=== PATIENT | male | born 1955 | race Caucasian/White ===

== ENCOUNTER 2018-12-03 23:13 | Emergency (ER) | payer SELFPAY ==
[2018-12-03 23:45] VITALS: BP 127/69
[2018-12-04] MEDS ORDERED: APLISOL ID ONE (00:01)
[2018-12-04 00:11] LABS: Basophils # (Auto) 0.1 K/mm3 (0.0-0.1); Basophils % (Auto) 0.8 % (0.0-1.8); Eosinophils # (Auto) 0.1 K/mm3 (0.0-0.4); Eosinophils % (Auto) 0.6 % (0.0-4.3); Hematocrit 38.8 % (35.5-45.6); Hemoglobin 13.3 gm/dl (11.8-15.2); Lymphocytes # (Auto) 1.3 K/mm3 (1.2-5.4); Lymphocytes % (Auto) 14.6 % (13.4-35.0); Mean Corpuscular HGB Conc 34 % (32-34); Mean Corpuscular Volume 89 fl (84-94); Monocytes # (Auto) 0.9 K/mm3 (0.0-0.8); Monocytes % (Auto) 10.1 % (0.0-7.3); Platelet Count 236 K/mm3 (140-440); Red Blood Count 4.37 M/mm3 (3.65-5.03); Red Cell Distribution Width 14.1 % (13.2-15.2)
[2018-12-04 00:37] LABS: BUN/Creatinine Ratio 19; Blood Urea Nitrogen 17 mg/dL (9-20); Calcium 8.6 mg/dL (8.4-10.2); Hemolysis Index 21
[2018-12-04 00:37] LABS: INR 0.86 (0.87-1.13); Partial Thromboplastin Time 31.8 Sec. (24.2-36.6)
--- NOTE | 2018-12-04 00:41 | Emergency Department Report ---
ED General Adult HPI - General Chief complaint: Upper Respiratory Infection Stated complaint: COUGHING UP BLOOD Time Seen by Provider: 12/03/18 23:40 Source: patient, family, EMS (ems notes not available at time of chart dictation), RN notes reviewed Mode of arrival: Stretcher Limitations: Language Barrier (supervisor cloth winding #[id number]; Slovak) - History of Present Illness Initial comments: This is a 63-year-old gentleman who is not known to this provider previously, reports chronic tobacco use, reports living in the [place] for over 20 years, and reports a "childhood sickness in my lungs when I was very young". The patient presents to the ER with EMS for resolved coughing up blood versus nasal bleeding. It started yesterday. It is painless. It resolved on its own yesterday. He also had an episode today. It is now resolved. He reports putting ice in his mouth yesterday and today, and thus had chills. Otherwise, not having a fever. Has minimal cough, no shortness of breath, no pain. Symptoms intermittent since yesterday, did not radiate anywhere, and did not appear to have exacerbating or relieving factors. Family present at the bedside, and they do not endorse any sick contacts at this point in time. -: Gradual Consistency: intermittent Improves with: none Worsens with: none Associated Symptoms: other (coughing up blood) - Related Data Previous Rx's Medication Instructions Recorded Last Taken Type Sulfamethoxazole/Trimethoprim 1 each PO BID #20 tablet 03/26/15 Unknown Rx [Bactrim Ds] Albuterol Sulfate [Proair 90 mcg IH Q4HR PRN #2 aer.pow.ba 12/04/18 Unknown Rx Respiclick] Fluticasone [Flonase] 1 spray NS QDAY #1 bottle 12/04/18 Unknown Rx Ibuprofen [Motrin] 600 mg PO Q8H PRN #30 tablet 12/04/18 Unknown Rx Allergies Allergy/AdvReac Type Severity Reaction Status Date / Time No Known Allergies Allergy Verified 03/26/15 13:59 ED Review of Systems ROS: Stated complaint: COUGHING UP BLOOD Other details as noted in HPI Constitutional: chills ENT: epistaxis (now resolved). denies: throat pain, dental pain, hearing loss Respiratory: cough Cardiovascular: denies: chest pain Gastrointestinal: denies: abdominal pain Musculoskeletal: denies: back pain Neurological: denies: headache ED Past Medical Hx - Social History Smoking Status: Unknown if ever smoked Substance Use Type: None - Medications Home Medications: Home Medications Medication Instructions Recorded Confirmed Last Taken Type Sulfamethoxazole/Trimethoprim 1 each PO BID #20 tablet 03/26/15 Unknown Rx [Bactrim Ds] Albuterol Sulfate [Proair 90 mcg IH Q4HR PRN #2 aer.pow.ba 12/04/18 Unknown Rx Respiclick] Fluticasone [Flonase] 1 spray NS QDAY #1 bottle 12/04/18 Unknown Rx Ibuprofen [Motrin] 600 mg PO Q8H PRN #30 tablet 12/04/18 Unknown Rx ED Physical Exam - General Limitations: Language Barrier General appearance: alert, in no apparent distress - Head Head exam: Present: atraumatic, normocephalic - Eye Eye exam: Present: normal appearance, EOMI. Absent: nystagmus - ENT ENT exam: Present: normal exam, normal orophraynx, mucous membranes moist, normal external ear exam, other (patient has poor dentition. Dried blood noted in the bilateral nostrils. No obvious nasal septal hematoma) - Neck Neck exam: Present: normal inspection, full ROM. Absent: tenderness, meningismus - Respiratory Respiratory exam: Present: decreased breath sounds. Absent: respiratory distress - Cardiovascular Cardiovascular Exam: Present: regular rate, normal rhythm, normal heart sounds. Absent: bradycardia, tachycardia, irregular rhythm, systolic murmur, diastolic murmur, rubs, gallop - GI/Abdominal GI/Abdominal exam: Present: soft. Absent: distended, tenderness, guarding, rebound, rigid, pulsatile mass - Rectal Rectal exam: Present: deferred - Extremities Exam Extremities exam: Present: normal inspection, full ROM, other (Extraocular movements intact. Tongue midline. No facial droop. Facial sensation intact to light touch in the V1, V2, V3 distribution bilaterally. 5 and 5 strength in 4 extremities.. Sensation is intact to light touch in 4 extremities.). Absent: pedal edema, joint swelling, calf tenderness - Back Exam Back exam: Present: normal inspection, full ROM. Absent: tenderness, CVA tenderness (R), paraspinal tenderness, vertebral tenderness - Neurological Exam Neurological exam: Present: alert, other (2+ pulses noted in the bilateral upper, lower extremities. Compartments soft. No long bony tenderness. The pelvis is stable.) - Psychiatric Psychiatric exam: Present: normal affect, normal mood - Skin Skin exam: Present: warm, dry, intact, normal color. Absent: rash ED Course Vital Signs 12/03/18 23:28 Temperature 98.7 F Pulse Rate 70 Respiratory 18 Rate Blood Pressure 127/69 O2 Sat by Pulse 98 Oximetry - Reevaluation(s) Reevaluation #1: 12/04/18 00:39 Differential diagnosis, including not limited to: Sinusitis, bronchitis, bronchiectasis, pneumonia, malignancy Assessment and plan: 63-year-old gentleman with resolved coughing up blood versus throat blood versus nasal bleeding. Patient afebrile, with reassuring vital signs, appears to be quite comfortable, has no focal pulmonary findings, no fever, currently no history of features or presentation to suggest acute influenza or influenza-like illness, who is yawning at the end of his history and physical. 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 ED Medical Decision Making - Lab Data Result diagrams: 12/03/18 23:58 Vital Signs 12/03/18 23:28 Temperature 98.7 F Pulse Rate 70 Respiratory 18 Rate Blood Pressure 127/69 O2 Sat by Pulse 98 Oximetry Lab Results 12/03/18 12/03/18 12/04/18 Range/Units 23:58 23:58 00:08 WBC 8.6 (4.5-11.0) K/mm3 RBC 4.37 (3.65-5.03) M/mm3 Hgb 13.3 (11.8-15.2) gm/dl Hct 38.8 (35.5-45.6) % MCV 89 (84-94) fl MCH 30 (28-32) pg MCHC 34 (32-34) % RDW 14.1 (13.2-15.2) % Plt Count 236 (140-440) K/mm3 Lymph % (Auto) 14.6 (13.4-35.0) % [place] % (Auto) 10.1 H (0.0-7.3) % Eos % (Auto) 0.6 (0.0-4.3) % Baso % (Auto) 0.8 (0.0-1.8) % Lymph # 1.3 (1.2-5.4) K/mm3 [place] # 0.9 H (0.0-0.8) K/mm3 Eos # 0.1 (0.0-0.4) K/mm3 Baso # 0.1 (0.0-0.1) K/mm3 Seg Neutrophils % 73.9 H (40.0-70.0) % Seg Neutrophils # 6.4 (1.8-7.7) K/mm3 PT 12.1 L (12.2-14.9) Sec. INR 0.86 L (0.87-1.13) APTT 31.8 (24.2-36.6) Sec. Sodium 139 (137-145) mmol/L Potassium 4.0 (3.6-5.0) mmol/L Chloride 101.8 (98-107) mmol/L Carbon Dioxide 26 (22-30) mmol/L Anion Gap 15 mmol/L BUN 17 (9-20) mg/dL Creatinine 0.9 (0.8-1.5) mg/dL Estimated GFR > 60 ml/min BUN/Creatinine Ratio 19 % Glucose 93 (75-100) mg/dL Calcium 8.6 (8.4-10.2) mg/dL - Radiology Data Radiology results: image reviewed interpreted by me: X-ray the chest, negative for acute disease, hyperinflated lung Critical care attestation.: If time is entered above; I have spent that time in minutes in the direct care of this critically ill patient, excluding procedure time. ED Disposition Clinical Impression: History of hemoptysis Disposition: TO HOME OR SELFCARE Is pt being admited?: No Does the pt Need Aspirin: No Condition: Good Instructions: Acute Hemoptysis (ED), Acute Bronchitis (ED) Additional Instructions: Discontinued tobacco consumption. Take the medications as needed/directed. Follow up with the primary care doctor within the next 4 weeks. Follow up with the pulmonary specialists or ENT specialist within the next 4 weeks. Return to the ER right away with lethargy, irritability, nausea, vomiting, change in mental status, confusion, inability to speak, inability to breathe, new, worsening or different symptoms. Dr Draper is a local lung doctor Dr Kwong is an ENT doctor Ng?ng aviva th? arnaldo?c l. Dng arnaldo?c khi c?n thi?t / ken ch? d?n. Ken di v?i bc s? ch?m sc chnh shaka vng 4 tu?n t?i. Ken di v?i cc chuyn olga ph?i ho?c chuyn olga lizeth m?i h?ng shaka vng 4 tu?n t?i. [place]? l?i ER ngay l?p t?c v?i s? th? ?, kh ch?u, bu?n nn, nn, thay ??i tr?ng thi [place] th?n, nh?m l?n, khng th? ni, khng th? th?, m?i, x?u ?i ho?c cc tri?u ch?ng kh nhau. Referrals: ENRIQUE DRAPER MD [Staff Physician] - 7-10 days QUITA KWONG MD [Staff Physician] - 7-10 days [facility] [Provider Group] - 7-10 days
--- NOTE | 2018-12-04 01:23 | XRay Report ---
FINAL REPORT EXAM: XR CHEST 1V AP HISTORY: Shortness of breath TECHNIQUE: AP portable view of the chest. PRIORS: None. FINDINGS: The cardiomediastinal silhouette appears normal. The lungs are clear. The bones and soft tissues are unremarkable. IMPRESSION: No evidence of acute cardiopulmonary disease.
== END 2018-12-04 01:54 | disposition home or self-care (01) ==
LOC: ED 23:13
DX: R04.2 Hemoptysis (principal)
CPT/HCPCS: 36415; 71045; 80048; 85025; 85610; 85730; 99284

== ENCOUNTER 2018-12-04 02:11 | Emergency (ER) | payer SELFPAY ==
[2018-12-04 02:36] VITALS: BP 113/74
[2018-12-04] MEDS ORDERED: VICKS SINEX NS ONE (03:04)
--- NOTE | 2018-12-04 03:55 | Emergency Department Report ---
ED ENT HPI - General Chief complaint: Nosebleed Stated complaint: NOSE BLEED Time Seen by Provider: 12/04/18 03:04 Source: patient, family, RN notes reviewed, old records reviewed Mode of arrival: Ambulatory Limitations: No Limitations, Language Barrier - History of Present Illness Initial comments: This is a 63-year-old gentleman who I just evaluated. Please see my previous medical record. The patient was discharged. Apparently, while else aside, the patient coughed up or brought up additional blood from his nose or mouth. It is now resolved. There is no additional bleeding. The patient endorses no pain. He is resting comfortably on a stretcher in no acute distress. MD complaint: epistaxis -: Sudden Location: nose, other Improves with: none Worsens with: none - Related Data Previous Rx's Medication Instructions Recorded Last Taken Type Sulfamethoxazole/Trimethoprim 1 each PO BID #20 tablet 03/26/15 Unknown Rx [Bactrim Ds] Albuterol Sulfate [Proair 90 mcg IH Q4HR PRN #2 aer.pow.ba 12/04/18 Unknown Rx Respiclick] Fluticasone [Flonase] 1 spray NS QDAY #1 bottle 12/04/18 Unknown Rx Ibuprofen [Motrin] 600 mg PO Q8H PRN #30 tablet 12/04/18 Unknown Rx Oxymetazoline 0.05% [Afrin] 2 spray NS BID #1 bottle 12/04/18 Unknown Rx Allergies Allergy/AdvReac Type Severity Reaction Status Date / Time No Known Allergies Allergy Verified 03/26/15 13:59 ED Dental HPI - General Chief complaint: Nosebleed Stated complaint: NOSE BLEED Time Seen by Provider: 12/04/18 03:04 Source: patient Mode of arrival: Ambulatory Limitations: No Limitations - Related Data Previous Rx's Medication Instructions Recorded Last Taken Type Sulfamethoxazole/Trimethoprim 1 each PO BID #20 tablet 03/26/15 Unknown Rx [Bactrim Ds] Albuterol Sulfate [Proair 90 mcg IH Q4HR PRN #2 aer.pow.ba 12/04/18 Unknown Rx Respiclick] Fluticasone [Flonase] 1 spray NS QDAY #1 bottle 12/04/18 Unknown Rx Ibuprofen [Motrin] 600 mg PO Q8H PRN #30 tablet 12/04/18 Unknown Rx Oxymetazoline 0.05% [Afrin] 2 spray NS BID #1 bottle 12/04/18 Unknown Rx Allergies Allergy/AdvReac Type Severity Reaction Status Date / Time No Known Allergies Allergy Verified 03/26/15 13:59 ED Review of Systems ROS: Stated complaint: NOSE BLEED Other details as noted in HPI Comment: see previous chart ED Past Medical Hx - Past Medical History Previous Medical History?: No - Surgical History Past Surgical History?: No - Social History Smoking Status: Current Every Day Smoker Substance Use Type: None - Medications Home Medications: Home Medications Medication Instructions Recorded Confirmed Last Taken Type Sulfamethoxazole/Trimethoprim 1 each PO BID #20 tablet 03/26/15 Unknown Rx [Bactrim Ds] Albuterol Sulfate [Proair 90 mcg IH Q4HR PRN #2 aer.pow.ba 12/04/18 Unknown Rx Respiclick] Fluticasone [Flonase] 1 spray NS QDAY #1 bottle 12/04/18 Unknown Rx Ibuprofen [Motrin] 600 mg PO Q8H PRN #30 tablet 12/04/18 Unknown Rx Oxymetazoline 0.05% [Afrin] 2 spray NS BID #1 bottle 12/04/18 Unknown Rx ED Physical Exam - General Limitations: Language Barrier General appearance: alert, in no apparent distress - Head Head exam: Present: atraumatic, normocephalic - Eye Eye exam: Present: normal appearance - ENT ENT exam: Present: normal orophraynx, mucous membranes moist, normal external ear exam, other (dry blood in the nostrils. No obvious blood in the oropharynx.) - Neck Neck exam: Present: normal inspection, full ROM. Absent: tenderness - Respiratory Respiratory exam: Present: normal lung sounds bilaterally. Absent: respiratory distress - Cardiovascular Cardiovascular Exam: Present: regular rate, normal rhythm, normal heart sounds. Absent: bradycardia, tachycardia, irregular rhythm, systolic murmur, diastolic murmur, rubs, gallop - GI/Abdominal GI/Abdominal exam: Present: soft. Absent: distended, tenderness, guarding, rebound, rigid, pulsatile mass - Rectal Rectal exam: Present: deferred - Extremities Exam Extremities exam: Present: normal inspection, full ROM, other (2+ pulses noted in the bilateral upper, lower extremities. Compartments soft. No long bony tenderness. The pelvis is stable.) - Back Exam Back exam: Present: normal inspection, full ROM. Absent: tenderness, CVA tenderness (R), paraspinal tenderness, vertebral tenderness - Neurological Exam Neurological exam: Present: alert, normal gait, other (moving 4 extremities spontaneously. There is no facial droop.) - Psychiatric Psychiatric exam: Present: normal affect, normal mood - Skin Skin exam: Present: warm, dry, intact, normal color. Absent: rash ED Course Vital Signs 12/04/18 02:33 Temperature 98.0 F Pulse Rate 89 Respiratory 18 Rate Blood Pressure 113/74 O2 Sat by Pulse 98 Oximetry - Reevaluation(s) Reevaluation #1: 12/04/18 03:54 Differential diagnosis, including not limited to: Nasal bleeding, bronchitis, bronchiectasis, sinusitis Assessment and plan: 63-year-old gentleman with recurrent history of bleeding, which is now resolved. The patient is resting on a stretcher and in no acute distress. Most likely experiencing the expected natural history of sinusitis, bronchitis, or bronchiectasis. His laboratory studies were unremarkable, his physical examination is unremarkable, he does not demonstrate any evidence of active bleeding at this time. A tongue depressor device was applied to his nostrils, in place for over 20 minutes, with no recurrent bleeding. Patient was provided with Afrin in the emergency room, and there does not appear to be an emergent medical condition at this time, the patient may follow up with an outpatient ENT physician. 12/04/18 03:58 Critical care attestation.: If time is entered above; I have spent that time in minutes in the direct care of this critically ill patient, excluding procedure time. ED Disposition Clinical Impression: History of epistaxis Disposition: DC-01 TO HOME OR SELFCARE Is pt being admited?: No Does the pt Need Aspirin: No Condition: Stable Instructions: Epistaxis (ED) Additional Instructions: Follow up with any of the listed ear nose and throat physicians within the next 3-5 days. NaSal bleeding may recur. If nasal bleeding reoccurs, apply one to 2 sprays of Afrin medication, in the affected nostril, then hold direct pressure with fingertips, using the tongue depressor device that was provided to the patient, and hold pressure for 15-20 minutes. Afrin may be used once every 12 hours, for up to 3 days consecutively. Flonase may be used indefinitely. Return to the ER right away with lethargy, irritability, projectile vomiting, change in mental status, new, worsening or different symptoms. Referrals: ZEV WALLER MD [Staff Physician] - 3-5 Days QUITA FABIAN MD [Staff Physician] - 3-5 Days
== END 2018-12-04 04:39 | disposition home or self-care (01) ==
LOC: ED 02:11
DX: R04.0 Epistaxis (principal); F17.200 Nicotine dependence, unspecified, uncomplicated
CPT/HCPCS: 99282

== ENCOUNTER 2018-12-06 12:05 | Emergency (ER) | payer SELFPAY ==
--- NOTE | 2018-12-06 13:18 | Emergency Department Report ---
ED ENT HPI - General Chief complaint: Nosebleed Stated complaint: NOSE BLEED Time Seen by Provider: 12/06/18 13:04 Source: patient Mode of arrival: Ambulatory Limitations: Language Barrier - History of Present Illness Initial comments: Mr. Dutton presents to ER for the second time in 3 days for right-sided nosebleed. No past medical history otherwise. He has been using Afrin spray twice a day. No current bleeding. However the bleeding has recurred daily which causes him quite concerned. Mild lightheadedness. He does have not have a primary physician. MD complaint: epistaxis -: days(s) (3) Location: nose Severity: mild Consistency: intermittent Improves with: pressure Worsens with: medication Context-Epistaxis: history of similar - Related Data Previous Rx's Medication Instructions Recorded Last Taken Type Sulfamethoxazole/Trimethoprim 1 each PO BID #20 tablet 03/26/15 Unknown Rx [Bactrim Ds] Albuterol Sulfate [Proair 90 mcg IH Q4HR PRN #2 aer.pow.ba 12/04/18 Unknown Rx Respiclick] Fluticasone [Flonase] 1 spray NS QDAY #1 bottle 12/04/18 Unknown Rx Ibuprofen [Motrin] 600 mg PO Q8H PRN #30 tablet 12/04/18 Unknown Rx Oxymetazoline 0.05% [Afrin] 2 spray NS BID #1 bottle 12/04/18 Unknown Rx Allergies Allergy/AdvReac Type Severity Reaction Status Date / Time No Known Allergies Allergy Verified 03/26/15 13:59 ED Dental HPI - General Chief complaint: Nosebleed Stated complaint: NOSE BLEED Time Seen by Provider: 12/06/18 13:04 Source: patient Mode of arrival: Ambulatory Limitations: Language Barrier - Related Data Previous Rx's Medication Instructions Recorded Last Taken Type Sulfamethoxazole/Trimethoprim 1 each PO BID #20 tablet 03/26/15 Unknown Rx [Bactrim Ds] Albuterol Sulfate [Proair 90 mcg IH Q4HR PRN #2 aer.pow.ba 12/04/18 Unknown Rx Respiclick] Fluticasone [Flonase] 1 spray NS QDAY #1 bottle 12/04/18 Unknown Rx Ibuprofen [Motrin] 600 mg PO Q8H PRN #30 tablet 12/04/18 Unknown Rx Oxymetazoline 0.05% [Afrin] 2 spray NS BID #1 bottle 12/04/18 Unknown Rx Allergies Allergy/AdvReac Type Severity Reaction Status Date / Time No Known Allergies Allergy Verified 03/26/15 13:59 ED Review of Systems ROS: Stated complaint: NOSE BLEED Other details as noted in HPI Constitutional: denies: fever, malaise Cardiovascular: denies: chest pain Gastrointestinal: denies: abdominal pain ED Past Medical Hx - Past Medical History Previous Medical History?: No Additional medical history: nose bleed - Surgical History Past Surgical History?: No - Social History Smoking Status: Current Every Day Smoker - Medications Home Medications: Home Medications Medication Instructions Recorded Confirmed Last Taken Type Sulfamethoxazole/Trimethoprim 1 each PO BID #20 tablet 03/26/15 Unknown Rx [Bactrim Ds] Albuterol Sulfate [Proair 90 mcg IH Q4HR PRN #2 aer.pow.ba 12/04/18 Unknown Rx Respiclick] Fluticasone [Flonase] 1 spray NS QDAY #1 bottle 12/04/18 Unknown Rx Ibuprofen [Motrin] 600 mg PO Q8H PRN #30 tablet 12/04/18 Unknown Rx Oxymetazoline 0.05% [Afrin] 2 spray NS BID #1 bottle 12/04/18 Unknown Rx ED Physical Exam - General Limitations: Language Barrier General appearance: alert, in no apparent distress - Head Head exam: Present: atraumatic, normocephalic - Eye Eye exam: Present: normal appearance - ENT ENT exam: Present: normal orophraynx, mucous membranes moist, other (right nostril scabbed over area at the medial nasal septum no active bleeding in the mouth or nares) - Neck Neck exam: Present: normal inspection, full ROM - Respiratory Respiratory exam: Present: normal lung sounds bilaterally. Absent: respiratory distress, wheezes, rales, rhonchi - Cardiovascular Cardiovascular Exam: Present: regular rate, normal rhythm, normal heart sounds. Absent: systolic murmur, diastolic murmur, rubs, gallop - GI/Abdominal GI/Abdominal exam: Present: soft, normal bowel sounds. Absent: distended, tenderness, guarding, rebound - Rectal Rectal exam: Present: deferred - Extremities Exam Extremities exam: Present: normal inspection - Back Exam Back exam: Present: normal inspection - Neurological Exam Neurological exam: Present: alert, oriented X3 - Psychiatric Psychiatric exam: Present: normal affect, normal mood - Skin Skin exam: Present: warm, dry, intact, normal color. Absent: rash ED Course Vital Signs 12/06/18 12:24 Temperature 98.5 F Pulse Rate 98 H Blood Pressure 100/62 O2 Sat by Pulse 98 Oximetry ED Medical Decision Making - Medical Decision Making Anterior epistaxis right sided, no active bleeding. However patient and family meds required much education and reassurance. I recommended to hold Afrin spray use. I feel that the trauma of scheduled Afrin application is the main cause for recurrence of epistaxis. I tried to reassure patient and family members that this is a minor disease entity. I referred patient to outside clinic and ENT specialist. I reviewed labs are obtained on previous ED evaluation 2 days ago. CBC chemistry including hepatic panel PT PTT all within normal limits Critical care attestation.: If time is entered above; I have spent that time in minutes in the direct care of this critically ill patient, excluding procedure time. ED Disposition Clinical Impression: Recurrent epistaxis Disposition: DC- TO HOME OR SELFCARE Is pt being admited?: No Does the pt Need Aspirin: No Condition: Stable Instructions: Epistaxis (ED) Referrals: [facility] [Outside] - 2-3 Days YADIRA FINN MD [Staff Physician] - 3-5 Days
== END 2018-12-06 13:25 | disposition home or self-care (01) ==
LOC: ED 12:05
CPT/HCPCS: 99282

== ENCOUNTER 2020-07-23 20:11 | Emergency (ER) | payer MEDICARE ==
[2020-07-23 21:03] VITALS: BP 111/70
[2020-07-23 21:25] LABS: Basophils % (Auto) 0.5 % (0.0-1.8); Eosinophils % (Auto) 0.3 % (0.0-4.3); Hematocrit 45.7 % (35.5-45.6); Hemoglobin 15.3 gm/dl (11.8-15.2); Lymphocytes # (Auto) 1.4 K/mm3 (1.2-5.4); Lymphocytes % (Auto) 16.4 % (13.4-35.0); Mean Corpuscular HGB Conc 33 % (32-34); Mean Corpuscular Volume 91 fl (84-94); Monocytes # (Auto) 0.5 K/mm3 (0.0-0.8); Monocytes % (Auto) 5.9 % (0.0-7.3); Platelet Count 196 K/mm3 (140-440); Red Blood Count 5.05 M/mm3 (3.65-5.03); Red Cell Distribution Width 13.9 % (13.2-15.2)
[2020-07-23 21:48] LABS: Alanine Aminotransferase 17 units/L (7-56); Albumin 4.3 g/dL (3.9-5); BUN/Creatinine Ratio 12; Blood Urea Nitrogen 11 mg/dL (9-20); Calcium 9.4 mg/dL (8.4-10.2); Hemolysis Index 4
[2020-07-23 22:59] LABS: Bilirubin,Urine NEG (Negative); Blood,Urine NEG (Negative); Color,Urine Yellow (Yellow); Mucus,Urine FEW /HPF; Protein,Urine <15 mg/dL mg/dL (Negative); Urobilinogen,Urine < 2.0 mg/dL (<2.0); WBC,Urine < 1.0 /HPF (0.0-6.0)
[2020-07-23] MEDS ORDERED: ONDANSETRON 4 MG ODT TAB PO ONE (23:01)
[2020-07-23] MEDS ORDERED: IBUPROFEN 800 MG TAB PO ONE (23:01)
--- NOTE | 2020-07-23 23:11 | Emergency Department Report ---
ED Headache HPI - General Chief Complaint: Nausea/Vomiting/Diarrhea Stated Complaint: HEADACHE,NAUSEA,DIZZINESS Time Seen by Provider: 07/23/20 22:49 Source: patient Exam Limitations: language barrier (Primary language Uzbek, language line full time staff interpreter used to obtain history) - History of Present Illness Initial Comments: This is a 65-year-old male history of tobacco abuse and who presents with headache for day. He states that his his feels heavy. He is lightheaded. He denies vomiting and diarrhea although the symptoms were documented on triage form. He did not take any medication at home. He feels as if he has "a cold in my head". Mild nasal congestion. No cough. No fever. No chest pain. No abdominal pain. No neck pain. Language line full time staff interpreter #[id number] used to obtain history Timing/Duration: 24 hours Quality: mild Head Injury Location: frontal Modifying Factors: improves with: other (none) Associated Symptoms: nasal congestion, other (Lightheadedness) Allergies/Adverse Reactions: Allergies No Known Allergies Allergy (Verified 03/26/15 13:59) Home Medications: Ambulatory Orders Sulfamethoxazole/Trimethoprim [Bactrim Ds] 1 each PO BID #20 tablet 03/26/15 Albuterol Sulfate [Proair Respiclick] 90 mcg IH Q4HR PRN #2 aer.pow.ba 12/04/18 Fluticasone [Flonase] 1 spray NS QDAY #1 bottle 12/04/18 Ibuprofen [Motrin] 600 mg PO Q8H PRN #30 tablet 12/04/18 Oxymetazoline 0.05% [Afrin] 2 spray NS BID #1 bottle 12/04/18 Loratadine 1 tab PO DAILY 14 Days #14 capsule 07/23/20 ED Review of Systems ROS: Stated complaint: HEADACHE,NAUSEA,DIZZINESS Other details as noted in HPI Comment: All other systems reviewed and negative Constitutional: denies: fever, malaise ENT: congestion Respiratory: denies: cough, shortness of breath Cardiovascular: denies: chest pain Gastrointestinal: denies: abdominal pain, nausea, vomiting ED Past Medical Hx - Past Medical History Previous Medical History?: No Additional medical history: nose bleed - Surgical History Past Surgical History?: No - Social History Smoking Status: Current Every Day Smoker Substance Use Type: None - Medications Home Medications: Home Medications Medication Instructions Recorded Confirmed Last Taken Type Sulfamethoxazole/Trimethoprim 1 each PO BID #20 tablet 03/26/15 Unknown Rx [Bactrim Ds] Albuterol Sulfate [Proair 90 mcg IH Q4HR PRN #2 aer.pow.ba 12/04/18 Unknown Rx Respiclick] Fluticasone [Flonase] 1 spray NS QDAY #1 bottle 12/04/18 Unknown Rx Ibuprofen [Motrin] 600 mg PO Q8H PRN #30 tablet 12/04/18 Unknown Rx Oxymetazoline 0.05% [Afrin] 2 spray NS BID #1 bottle 12/04/18 Unknown Rx Loratadine 1 tab PO DAILY 14 Days #14 capsule 07/23/20 Unknown Rx ED Physical Exam - General Limitations: No Limitations General appearance: alert, in no apparent distress - Head Head exam: Present: atraumatic, normocephalic - Eye Eye exam: Present: normal appearance - ENT ENT exam: Present: mucous membranes moist - Neck Neck exam: Present: normal inspection, full ROM - Respiratory Respiratory exam: Present: normal lung sounds bilaterally. Absent: respiratory distress, wheezes, rales, rhonchi - Cardiovascular Cardiovascular Exam: Present: regular rate, normal rhythm, normal heart sounds. Absent: systolic murmur, diastolic murmur, rubs, gallop - GI/Abdominal GI/Abdominal exam: Present: soft, normal bowel sounds. Absent: distended, tenderness, guarding, rebound - Rectal Rectal exam: Present: deferred - Extremities Exam Extremities exam: Present: normal inspection - Neurological Exam Neurological exam: Present: alert, oriented X3 - Psychiatric Psychiatric exam: Present: normal affect, normal mood - Skin Skin exam: Present: warm, dry, intact, normal color. Absent: rash ED Course Vital Signs 07/23/20 20:44 Temperature 98.4 F Pulse Rate 67 Respiratory 16 Rate Blood Pressure 111/70 O2 Sat by Pulse 98 Oximetry ED Medical Decision Making - Lab Data Result diagrams: 07/23/20 21:03 07/23/20 21:03 Laboratory Results - last 24 hr 07/23/20 07/23/20 07/23/20 21:03 21:03 Unknown WBC 8.4 RBC 5.05 H Hgb 15.3 H Hct 45.7 H MCV 91 MCH 30 MCHC 33 RDW 13.9 Plt Count 196 Lymph % (Auto) 16.4 [place] % (Auto) 5.9 Eos % (Auto) 0.3 Baso % (Auto) 0.5 Lymph # 1.4 [place] # 0.5 Eos # 0.0 Baso # 0.0 Seg Neutrophils % 76.9 H Seg Neutrophils # 6.5 Sodium 136 L Potassium 4.6 Chloride 100.4 Carbon Dioxide 24 Anion Gap 16 BUN 11 Creatinine 0.9 Estimated GFR > 60 BUN/Creatinine Ratio 12 Glucose 108 H Calcium 9.4 Total Bilirubin 0.30 AST 23 ALT 17 Alkaline Phosphatase 86 Total Protein 7.2 Albumin 4.3 Albumin/Globulin Ratio 1.5 Lipase 39 Urine Color Yellow Urine Turbidity Clear Urine pH 7.0 Ur Specific [place] 1.018 Urine Protein <15 mg/dl Urine Glucose (UA) Neg Urine Ketones Neg Urine Blood Neg Urine Nitrite Neg Urine Bilirubin Neg Urine Urobilinogen < 2.0 Ur Leukocyte Esterase Neg Urine WBC (Auto) < 1.0 Urine RBC (Auto) 3.0 Urine Mucus Few - Medical Decision Making This is a healthy 65-year-old male with history of tobacco abuse who presents with frontal headache. No red flags such as sudden onset, fever, vomiting, neurological deficits. Differential diagnosis: Tension headache, viral syndrome, sinusitis. Prescribed loratadine for 2 weeks. Patient referred to outpatient medical physician. Critical care attestation.: If time is entered above; I have spent that time in minutes in the direct care of this critically ill patient, excluding procedure time. ED Disposition Clinical Impression: Sinusitis Disposition: DC-01 TO HOME OR SELFCARE Is pt being admited?: No Does the pt Need Aspirin: No Condition: Stable Instructions: Sinusitis (ED) Prescriptions: Loratadine 1 tab PO DAILY 14 Days #14 capsule Referrals: MODESTO GOMEZ MD [Staff Physician] - 3-5 Days
== END 2020-07-24 | disposition home or self-care (01) ==
LOC: ED 20:11
DX: J32.9 Chronic sinusitis, unspecified (principal); F17.200 Nicotine dependence, unspecified, uncomplicated; Z79.899 Other long term (current) drug therapy
CPT/HCPCS: 36415; 80053; 81001; 83690; 85025; 99283; Q0162

== ENCOUNTER 2020-10-01 19:47 | Emergency (ER) | payer MEDICARE ==
--- NOTE | 2020-10-01 21:12 | XRay Report ---
CHEST 2 VIEWS INDICATION / CLINICAL INFORMATION: Shortness of breath. COMPARISON: 12/04/2018 FINDINGS: SUPPORT DEVICES: None. HEART / MEDIASTINUM: No significant abnormality. LUNGS / PLEURA: There is linear parenchymal opacity in the right upper lung zone which was present on the prior study. This is shown mild worsening in the interval. The lower lung zones are clear. There is hyperinflation of the lungs. No pneumothorax. ADDITIONAL FINDINGS: No significant additional findings. IMPRESSION: 1. There is persistent parenchymal density in the right upper lobe. This has shown mild worsening sin ce the prior study. There is hyperinflation of the lungs with bullous disease in the upper lung zones. Signer Name: Renato Flower MD Signed: 10/01/2020 9:08 PM Workstation Name: [id number]
[2020-10-01] MEDS ORDERED: predniSONE 20 MG TAB PO ONE (22:21)
[2020-10-01] MEDS ORDERED: ALBUTEROL 2.5 MG/3 ML NEBU IH ONE (22:30)
[2020-10-01] MEDS ORDERED: IPRATROPIUM 0.02% NEBU 2.5 ML IH ONE (22:30)
--- NOTE | 2020-10-01 22:35 | Emergency Department Report ---
HPI - General Chief Complaint: Dyspnea/Respdistress Time Seen by Provider: 10/01/20 22:21 - HPI HPI: This is a 65-year-old Hungarian male who presents to the emergency department with complaint of some shortness of breath, wheezing and coughing that is worst at night. This has been going on for the past 5 days. Patient says that he has some remote history of asthma but it has not bothered him for the past 20 years. He is a tobacco smoker. He does not have any inhaler, nebulizer, and has not taken anything for his symptoms prior to presentation. He does not have a primary care physician. No recent travel or sick contacts at home. He denies any fever, chest pain, lower extremity swelling, nausea, vomiting or diaphoresis. The patient does not speak any Uzbek and the language line translation services were used. ED Past Medical Hx - Past Medical History Previous Medical History?: Yes Hx Kidney Stones: Yes Additional medical history: nose bleed, Lung problem as a child - Surgical History Past Surgical History?: Yes Additional Surgical History: Kidney stones - Social History Smoking Status: Current Every Day Smoker Substance Use Type: None - Medications Home Medications: Home Medications Medication Instructions Recorded Confirmed Last Taken Type Sulfamethoxazole/Trimethoprim 1 each PO BID #20 tablet 03/26/15 Unknown Rx [Bactrim Ds] Fluticasone [Flonase] 1 spray NS QDAY #1 bottle 12/04/18 Unknown Rx Ibuprofen [Motrin] 600 mg PO Q8H PRN #30 tablet 12/04/18 Unknown Rx Oxymetazoline 0.05% [Afrin] 2 spray NS BID #1 bottle 12/04/18 Unknown Rx Loratadine 1 tab PO DAILY 14 Days #14 capsule 07/23/20 Unknown Rx Albuterol Sulfate [Proair 90 mcg IH Q4HR PRN #1 aer.pow.ba 10/01/20 Unknown Rx Respiclick] predniSONE [Deltasone] 20 mg PO QDAY #4 tab 10/01/20 Unknown Rx ED Review of Systems ROS: Stated complaint: NI Other details as noted in HPI Comment: All other systems reviewed and negative Constitutional: denies: chills, fever Eyes: denies: eye pain, vision change ENT: denies: ear pain, throat pain Respiratory: cough, shortness of breath, wheezing Cardiovascular: denies: chest pain, edema Gastrointestinal: denies: abdominal pain, vomiting Genitourinary: denies: dysuria, discharge Musculoskeletal: denies: back pain, arthralgia Skin: denies: rash, lesions Neurological: denies: headache, weakness Physical Exam - Physical Exam Vital Signs: Vital Signs 10/01/20 20:08 Temperature 98.0 F Pulse Rate 76 Respiratory 16 Rate Blood Pressure 110/70 O2 Sat by Pulse 95 Oximetry Physical Exam: GENERAL: The patient is well-developed well-nourished. HENT: Normocephalic. Atraumatic. Patient has moist mucous membranes. EYES: Extraocular motions are intact. NECK: Supple. Trachea is midline. CHEST/LUNGS: Mild to moderate wheezing throughout the chest. A dry cough heard during examination. No tachypnea or accessory muscle use. There is no respiratory distress noted. HEART/CARDIOVASCULAR: Regular. There is no tachycardia. ABDOMEN: Abdomen is soft, nontender. Patient has normal bowel sounds. SKIN: Skin is warm and dry. NEURO: The patient is awake, alert, and oriented. The patient is cooperative. Normal speech. MUSCULOSKELETAL: There is no tenderness or deformity. There is no limitation range of motion. ED Course Vital Signs 10/01/20 20:08 Temperature 98.0 F Pulse Rate 76 Respiratory 16 Rate Blood Pressure 110/70 O2 Sat by Pulse 95 Oximetry ED Medical Decision Making - Radiology Data Radiology results: report reviewed CHEST 2 VIEWS INDICATION / CLINICAL INFORMATION: Shortness of breath. COMPARISON: 12/04/2018 FINDINGS: SUPPORT DEVICES: None. HEART / MEDIASTINUM: No significant abnormality. LUNGS / PLEURA: There is linear parenchymal opacity in the right upper lung zone which was present on the prior study. This is shown mild worsening in the interval. The lower lung zones are clear. There is hyperinflation of the lungs. No pneumothorax. ADDITIONAL FINDINGS: No significant additional findings. IMPRESSION: 1. There is persistent parenchymal density in the right upper lobe. This has shown mild worsening since the prior study. There is hyperinflation of the lungs with bullous disease in the upper lung zones. - Medical Decision Making This patient presents with the complaint of a few days of shortness of breath, wheezing, coughing. On examination he has mild to moderate bronchospasm. There is no tachypnea, accessory muscle use and the patient does not appear in any respiratory or acute distress. Vital signs have been reassuring throughout his ED course including being afebrile and there is no hypoxia. Patient was given breathing treatment with both albuterol and Atrovent, as well as a dose of steroids. Upon reevaluation he is feeling improved and clinically appears improved as well. Chest x-ray did not show any pneumonia, pleural effusions or any acute process. It was read by radiology that there is a persistent parenchymal density in the right upper lobe that was seen on a prior study. Once again, using the language line translation services, I spoke to the patient regarding his ED course and chest x-ray results. I did explain about this nonspecific parenchymal density and we discussed the fact that he should get further evaluation as it was previously seen on x-ray and the patient has chronic tobacco use/abuse. However, the patient appears improved at this time and is safe for discharge home. He has been given a prescription for an albuterol inhaler, a course of steroids, and multiple referrals for outpatient primary care physicians and clinics. He has been instructed to return to the emergency department with any worsening of his symptoms or with any acute distress. Critical Care Time: No Critical care attestation.: If time is entered above; I have spent that time in minutes in the direct care of this critically ill patient, excluding procedure time. ED Disposition Clinical Impression: Bronchospasm with bronchitis, acute, Tobacco use disorder Disposition: - TO HOME OR SELFCARE Is pt being admited?: No Condition: Stable Instructions: Tobacco Use Disorder, Acute Bronchitis, Adult, Acute Bronchitis (ED) Additional Instructions: Please quit smoking. Take the medications as prescribed. Follow-up with a primary care physician in the next few days. As we discussed, please make sure that you get evaluated for the "parenchymal density" seen on your chest x-ray. It may be nothing, but given your long-term history of smoking, you may need further evaluation. Return to the emergency department with any worsening of your symptoms, new or concerning symptoms not addressed during this current emergency department visit, or with any acute distress. Prescriptions: predniSONE [Deltasone] 20 mg PO QDAY #4 tab Albuterol Sulfate [Proair Respiclick] 90 mcg IH Q4HR PRN #1 aer.pow.ba PRN Reason: Wheezing Referrals: PRIMARY MD DERIK [Primary Care Provider] - 2-3 Days ALEKSANDRA RUEDA MD [Staff Physician] - 2-3 Days ODEMUYIWA,ABDULFATAI O, MD [Staff Physician] - 2-3 Days [facility] [Provider Group] - 2-3 Days Time of Disposition: 23:36
[2020-10-01 23:42] VITALS: BP 112/78
== END 2020-10-01 23:42 | disposition home or self-care (01) ==
LOC: ED 19:47
DX: J20.9 Acute bronchitis, unspecified (principal); F17.298 Nicotine dependence, other tobacco product, with other nicotine-induced disorders; F17.200 Nicotine dependence, unspecified, uncomplicated; Z79.899 Other long term (current) drug therapy
CPT/HCPCS: 71046; 94640; 99284; J7512; 94644

== ENCOUNTER 2020-10-10 09:33 | Emergency (ER) | payer MEDICARE ==
--- NOTE | 2020-10-10 10:21 | XRay Report ---
CHEST 2 VIEWS INDICATION / CLINICAL INFORMATION: SOB. COMPARISON: Chest x-ray 10/01/2020 FINDINGS: SUPPORT DEVICES: None. HEART / MEDIASTINUM: No significant abnormality. LUNGS / PLEURA: COPD and right upper lobe parenchymal scarring, unchanged No significant pulmonary or pleural abnormality. No pneumothorax. ADDITIONAL FINDINGS: No significant additional findings. IMPRESSION: 1. No acute findings. Signer Name: Madhu Rangel MD Signed: 10/10/2020 10:17 AM Workstation Name: [id number]
[2020-10-10 11:27] VITALS: BP 109/69
--- NOTE | 2020-10-10 12:35 | Emergency Department Report ---
ED Shortness of Breath HPI - General Chief Complaint: Dyspnea/Respdistress Stated Complaint: NI/COUGH Time Seen by Provider: 10/10/20 10:38 Source: patient Mode of arrival: Ambulatory Limitations: Language Barrier - History of Present Illness Initial Comments: This 65-year-old male presents the emergency department with chief complaint of shortness of breath and cough. Patient has a past medical history of COPD that had not been diagnosed yet and has been to this emergency department with times for similar issue. He was recently seen on 10 01 for the same symptoms. Chest x-ray looks relatively unchanged and he was diagnosed with bronchitis and discharged with steroids, antihistamines and inhalers which he reports did help with his symptoms but when he ran out of the steroids his symptoms return. He states the symptoms are usually worse at night. He denies any productive cough, fever, chills, night sweats, dizziness, blurry vision, weakness or any other associated symptoms. History was obtained via Yo phone director of music therapy director of music therapy ID [id number] - Related Data Previous Rx's Medication Instructions Recorded Last Taken Type Sulfamethoxazole/Trimethoprim 1 each PO BID #20 tablet 03/26/15 Unknown Rx [Bactrim Ds] Fluticasone [Flonase] 1 spray NS QDAY #1 bottle 12/04/18 Unknown Rx Ibuprofen [Motrin] 600 mg PO Q8H PRN #30 tablet 12/04/18 Unknown Rx Oxymetazoline 0.05% [Afrin] 2 spray NS BID #1 bottle 12/04/18 Unknown Rx Loratadine 1 tab PO DAILY 14 Days #14 capsule 07/23/20 Unknown Rx Albuterol Sulfate [Proair 90 mcg IH Q4HR PRN #1 aer.pow.ba 10/01/20 Unknown Rx Respiclick] predniSONE [Deltasone] 20 mg PO QDAY #4 tab 10/01/20 Unknown Rx Albuterol Sulfate [Proair 90 mcg IH Q4HRT #1 aer.pow.ba 10/10/20 Unknown Rx Respiclick] Fluticasone/Salmeterol [Advair 1 puff IH BID #1 disk.w.dev 10/10/20 Unknown Rx Diskus 100-50 mcg] methylPREDNISolone [Medrol 4MG 4 mg PO ONCE #1 tab.ds.pk 10/10/20 Unknown Rx DOSEPAK (21 tabs)] Allergies Allergy/AdvReac Type Severity Reaction Status Date / Time No Known Allergies Allergy Verified 03/26/15 13:59 ED Review of Systems ROS: Stated complaint: NI/COUGH Other details as noted in HPI Comment: All other systems reviewed and negative Constitutional: denies: chills, fever Eyes: denies: eye pain, eye discharge, vision change ENT: denies: ear pain, throat pain Respiratory: cough, shortness of breath. denies: wheezing Cardiovascular: denies: chest pain, palpitations Endocrine: no symptoms reported Gastrointestinal: denies: abdominal pain, nausea, diarrhea Genitourinary: denies: urgency, dysuria Musculoskeletal: denies: back pain, joint swelling, arthralgia Skin: denies: rash, lesions Neurological: denies: headache, weakness, paresthesias Psychiatric: denies: anxiety, depression Hematological/Lymphatic: denies: easy bleeding, easy bruising ED Past Medical Hx - Past Medical History Previous Medical History?: Yes Hx Kidney Stones: Yes Additional medical history: nose bleed, Lung problem as a child - Surgical History Past Surgical History?: Yes Additional Surgical History: Kidney stones - Social History Smoking Status: Never Smoker Substance Use Type: None - Medications Home Medications: Home Medications Medication Instructions Recorded Confirmed Last Taken Type Sulfamethoxazole/Trimethoprim 1 each PO BID #20 tablet 03/26/15 Unknown Rx [Bactrim Ds] Fluticasone [Flonase] 1 spray NS QDAY #1 bottle 12/04/18 Unknown Rx Ibuprofen [Motrin] 600 mg PO Q8H PRN #30 tablet 12/04/18 Unknown Rx Oxymetazoline 0.05% [Afrin] 2 spray NS BID #1 bottle 12/04/18 Unknown Rx Loratadine 1 tab PO DAILY 14 Days #14 capsule 07/23/20 Unknown Rx Albuterol Sulfate [Proair 90 mcg IH Q4HR PRN #1 aer.pow.ba 10/01/20 Unknown Rx Respiclick] predniSONE [Deltasone] 20 mg PO QDAY #4 tab 10/01/20 Unknown Rx Albuterol Sulfate [Proair 90 mcg IH Q4HRT #1 aer.pow.ba 10/10/20 Unknown Rx Respiclick] Fluticasone/Salmeterol [Advair 1 puff IH BID #1 disk.w.dev 10/10/20 Unknown Rx Diskus 100-50 mcg] methylPREDNISolone [Medrol 4MG 4 mg PO ONCE #1 tab.ds.pk 10/10/20 Unknown Rx DOSEPAK (21 tabs)] ED Physical Exam - General Limitations: Language Barrier General appearance: alert, in no apparent distress - Head Head exam: Present: atraumatic, normocephalic - Eye Eye exam: Present: normal appearance, PERRL, EOMI Pupils: Present: normal accommodation - ENT ENT exam: Present: normal exam, normal orophraynx, mucous membranes moist - Neck Neck exam: Present: normal inspection, full ROM. Absent: tenderness, meningismus - Respiratory Respiratory exam: Present: normal lung sounds bilaterally. Absent: respiratory distress, wheezes, rales, rhonchi, stridor - Cardiovascular Cardiovascular Exam: Present: regular rate, normal rhythm, normal heart sounds. Absent: systolic murmur, diastolic murmur, rubs, gallop - GI/Abdominal GI/Abdominal exam: Present: soft, normal bowel sounds. Absent: distended, tenderness, guarding, rebound, rigid - Rectal Rectal exam: Present: deferred - Extremities Exam Extremities exam: Present: normal inspection, full ROM, normal capillary refill. Absent: tenderness, calf tenderness (No lower extremity edema, negative Homans' sign bilaterally.) - Back Exam Back exam: Present: normal inspection - Neurological Exam Neurological exam: Present: alert, oriented X3 - Psychiatric Psychiatric exam: Present: normal affect, normal mood - Skin Skin exam: Present: warm, dry, intact, normal color. Absent: rash ED Course Vital Signs 10/10/20 10/10/20 10/10/20 09:48 11:25 12:06 Temperature 97.7 F 97.7 F Pulse Rate 72 70 Respiratory 24 18 24 Rate Blood Pressure 109/69 Blood Pressure 109/69 [Left] O2 Sat by Pulse 96 96 Oximetry - Reevaluation(s) Reevaluation #1: 10/10/20 12:27 Patient is nontoxic in no acute distress. His vital signs are stable. O2 saturations 96% on room air which is normal. His lung sounds are clear. He has no symptoms of fluid overload with no lower extreme edema. He is a low Wells criteria for PE and no clinical symptoms of DVT on exam. We will treat the patient with a longer acting inhalers and some inhaled corticosteroids and recommended pulmonology follow-up. The patient had an x-ray today that showed s ome scarring in the right upper lungs which has been consistently seen but no other acute findings per the radiologist. Patient was educated about the importance of smoking cessation which she still says he smokes 5 to 6 cigarettes/day and educated him that his symptoms are likely chronic. I will treat him with a short course of antibiotics and strict return precautions. He verbalized understand these instructions all his questions were answered. ED Medical Decision Making - Radiology Data Radiology results: report reviewed XRay Report Signed Patient: OSMEL WISDOM MR#: [id number] : 1955 Acct:[id number] Age/Sex: 65 / M ADM Date: 10/10/20 Loc: ED Attending Dr: Ordering Physician: KATRIN BENNETT MD Date of Service: 10/10/20 Procedure(s): XR chest routine 2V Accession Number(s): [id number] cc: KATRIN BENNETT MD Fluoro Time In Minutes: CHEST 2 VIEWS INDICATION / CLINICAL INFORMATION: SOB. COMPARISON: Chest x-ray 10/01/2020 FINDINGS: SUPPORT DEVICES: None. HEART / MEDIASTINUM: No significant abnormality. LUNGS / PLEURA: COPD and right upper lobe parenchymal scarring, unchanged No significant pulmonary or pleural abnormality. No pneumothorax. ADDITIONAL FINDINGS: No significant additional findings. IMPRESSION: 1. No acute findings. Signer Name: Madhu Rangel MD Signed: 10/10/2020 10:17 AM Workstation Name: [id number] Transcribed By: TL Dictated By: Madhu Rangel MD Electronically Authenticated By: Madhu Rangel MD Signed Date/Time: 10/10/20 1017 - Medical Decision Making Patient is nontoxic in no acute distress. His vital signs are stable. O2 saturations 96% on room air which is normal. His lung sounds are clear. He has no symptoms of fluid overload with no lower extreme edema. He is a low Wells criteria for PE and no clinical symptoms of DVT on exam. We will treat the patient with a longer acting inhalers and some inhaled corticosteroids and recommended pulmonology follow-up. The patient had an x-ray today that showed some scarring in the right upper lungs which has been consistently seen but no other acute findings per the radiologist. Patient was educated about the importance of smoking cessation which she still says he smokes 5 to 6 cigarettes/day and educated him that his symptoms are likely chronic. I will treat him with a short course of antibiotics and strict return precautions. He verbalized understand these instructions all his questions were answered. - Differential Diagnosis COPD exacerbation, asthma exacerbation, pneumonia Critical care attestation.: If time is entered above; I have spent that time in minutes in the direct care of this critically ill patient, excluding procedure time. ED Disposition Clinical Impression: COPD exacerbation Disposition: DC- TO HOME OR SELFCARE Is pt being admited?: No Condition: Stable Instructions: Chronic Obstructive Pulmonary Disease (ED), Chronic Obstructive Pulmonary Disease Prescriptions: Fluticasone/Salmeterol [Advair Diskus 100-50 mcg] 1 puff IH BID #1 disk.w.dev methylPREDNISolone [Medrol 4MG DOSEPAK (21 tabs)] 4 mg PO ONCE #1 tab.ds.pk Albuterol Sulfate [Proair Respiclick] 90 mcg IH Q4HRT #1 aer.pow.ba Referrals: TERENCE AMOS MD [Staff Physician] - 3-5 Days [facility] [Provider Group] - 3-5 Days Time of Disposition: 12:35
[2020-10-10] MEDS ORDERED: diphenhydrAMINE 50 MG/ML VIAL ONE (17:08)
== END 2020-10-10 13:05 | disposition home or self-care (01) ==
LOC: ED 09:33
DX: J44.1 Chronic obstructive pulmonary disease with (acute) exacerbation (principal); Z79.899 Other long term (current) drug therapy
CPT/HCPCS: 71046; 99283; J1200

== ENCOUNTER 2021-01-29 22:02 | Emergency (ER) | payer MEDICARE ==
[2021-01-29] MEDS ORDERED: MAGNESIUM SULFATE 2 GM/50 ML BAG IV ONE (22:21)
[2021-01-29] MEDS ORDERED: ALBUTEROL 2.5 MG/3 ML NEBU IH ONE (22:21)
[2021-01-29] MEDS ORDERED: methylPREDNISolone Sod Succinate 125 MG/2 ML INJ IV ONE (22:21)
[2021-01-29] MEDS ORDERED: IPRATROPIUM 0.02% NEBU 2.5 ML IH ONE (22:21)
--- NOTE | 2021-01-29 22:29 | Emergency Department Report ---
ED Shortness of Breath HPI - General Chief Complaint: Dyspnea/Respdistress Stated Complaint: COPD,NI Time Seen by Provider: 01/29/21 22:17 Source: EMS Mode of arrival: Stretcher Limitations: Language Barrier - History of Present Illness Initial Comments: Chief plan: Shortness of breath HPI: This is a 65-year-old male with history of tobacco dependence and remote history of asthma who presents with shortness of breath and wheezing today. Patient has not had asthma issues since childhood. However he has been seen in the emergency department on 2 previous occasions 4 months ago for shortness of breath and wheezing. Patient received DuoNeb in route. Oxygen saturation 96% on room air. Patient arrived via EMS. Mr. Dutton received COVID-19 vaccine on yesterday. I used Motally line change lead to obtain history. Treatment nurse also spoke with per phone. MD Complaint: shortness of breath, cough -: Gradual, days(s) (1) Severity: mild Consistency: now resolved Improves With: bronchodilators Known History Of: other (Tobacco dependence, childhood asthma) Context: other Associated Symptoms: denies other symptoms - Related Data Previous Rx's Medication Instructions Recorded Last Taken Type Sulfamethoxazole/Trimethoprim 1 each PO BID #20 tablet 03/26/15 Unknown Rx [Bactrim Ds] Fluticasone [Flonase] 1 spray NS QDAY #1 bottle 12/04/18 Unknown Rx Ibuprofen [Motrin] 600 mg PO Q8H PRN #30 tablet 12/04/18 Unknown Rx Oxymetazoline 0.05% [Afrin] 2 spray NS BID #1 bottle 12/04/18 Unknown Rx Loratadine 1 tab PO DAILY 14 Days #14 capsule 07/23/20 Unknown Rx Albuterol Sulfate [Proair 90 mcg IH Q4HR PRN #1 aer.pow.ba 10/01/20 Unknown Rx Respiclick] predniSONE [Deltasone] 20 mg PO QDAY #4 tab 10/01/20 Unknown Rx Albuterol Sulfate [Proair 90 mcg IH Q4HRT #1 aer.pow.ba 10/10/20 Unknown Rx Respiclick] Fluticasone/Salmeterol [Advair 1 puff IH BID #1 disk.w.dev 10/10/20 Unknown Rx Diskus 100-50 mcg] methylPREDNISolone [Medrol 4MG 4 mg PO ONCE #1 tab.ds.pk 10/10/20 Unknown Rx DOSEPAK (21 tabs)] Albuterol Mdi (or & Nicu Only) 2 puff IH QID PRN #8.5 gram 01/29/21 Unknown Rx [ProAir HFA Inhaler] Doxycycline Hyclate [Doxycycline 100 mg PO Q12HR 7 Days #14 tab 01/29/21 Unknown Rx Hyclate TAB] Prednisone [predniSONE 10 mg 10 mg PO .TAPER #1 tab.ds.pk 01/29/21 Unknown Rx (6-Day Pack, 21 Tabs)] Allergies Allergy/AdvReac Type Severity Reaction Status Date / Time No Known Allergies Allergy Verified 03/26/15 13:59 ED Review of Systems ROS: Stated complaint: COPD,NI Other details as noted in HPI Comment: All other systems reviewed and negative Constitutional: denies: fever, malaise Respiratory: cough, shortness of breath, wheezing Cardiovascular: denies: chest pain Gastrointestinal: denies: abdominal pain, nausea, vomiting ED Past Medical Hx - Past Medical History Previous Medical History?: Yes Hx Kidney Stones: Yes Additional medical history: nose bleed, Lung problem as a child - Surgical History Past Surgical History?: Yes Additional Surgical History: Kidney stones - Social History Smoking Status: Current Every Day Smoker Substance Use Type: None - Medications Home Medications: Home Medications Medication Instructions Recorded Confirmed Last Taken Type Sulfamethoxazole/Trimethoprim 1 each PO BID #20 tablet 03/26/15 Unknown Rx [Bactrim Ds] Fluticasone [Flonase] 1 spray NS QDAY #1 bottle 12/04/18 Unknown Rx Ibuprofen [Motrin] 600 mg PO Q8H PRN #30 tablet 12/04/18 Unknown Rx Oxymetazoline 0.05% [Afrin] 2 spray NS BID #1 bottle 12/04/18 Unknown Rx Loratadine 1 tab PO DAILY 14 Days #14 capsule 07/23/20 Unknown Rx Albuterol Sulfate [Proair 90 mcg IH Q4HR PRN #1 aer.pow.ba 10/01/20 Unknown Rx Respiclick] predniSONE [Deltasone] 20 mg PO QDAY #4 tab 10/01/20 Unknown Rx Albuterol Sulfate [Proair 90 mcg IH Q4HRT #1 aer.pow.ba 10/10/20 Unknown Rx Respiclick] Fluticasone/Salmeterol [Advair 1 puff IH BID #1 disk.w.dev 10/10/20 Unknown Rx Diskus 100-50 mcg] methylPREDNISolone [Medrol 4MG 4 mg PO ONCE #1 tab.ds.pk 10/10/20 Unknown Rx DOSEPAK (21 tabs)] Albuterol Mdi (or & Nicu Only) 2 puff IH QID PRN #8.5 gram 01/29/21 Unknown Rx [ProAir HFA Inhaler] Doxycycline Hyclate [Doxycycline 100 mg PO Q12HR 7 Days #14 tab 01/29/21 Unknown Rx Hyclate TAB] Prednisone [predniSONE 10 mg 10 mg PO .TAPER #1 tab.ds.pk 01/29/21 Unknown Rx (6-Day Pack, 21 Tabs)] ED Physical Exam - General Limitations: Language Barrier General appearance: alert, in no apparent distress - Head Head exam: Present: atraumatic, normocephalic - Eye Eye exam: Present: normal appearance - ENT ENT exam: Present: mucous membranes moist - Neck Neck exam: Present: normal inspection, full ROM - Respiratory Respiratory exam: Present: wheezes (Expiratory wheezes prolonged respiratory phase), prolonged expiratory. Absent: respiratory distress, rales, rhonchi, acc essory muscle use, decreased breath sounds - Cardiovascular Cardiovascular Exam: Present: regular rate, normal rhythm, normal heart sounds. Absent: systolic murmur, diastolic murmur, rubs, gallop - GI/Abdominal GI/Abdominal exam: Present: soft, normal bowel sounds. Absent: distended, tenderness, guarding, rebound - Rectal Rectal exam: Present: deferred - Extremities Exam Extremities exam: Present: normal inspection - Neurological Exam Neurological exam: Present: alert, oriented X3 - Psychiatric Psychiatric exam: Present: normal affect, normal mood - Skin Skin exam: Present: warm, dry, intact, normal color. Absent: rash ED Course Vital Signs 01/29/21 01/29/21 22:43 23:31 Pulse Rate 79 Pulse Rate [ 83 Bilateral] Respiratory 13 Rate Respiratory 20 Rate [Bilateral ] O2 Sat by Pulse 98 Oximetry ED Medical Decision Making - Lab Data Result diagrams: 01/29/21 22:31 01/29/21 22:31 - Radiology Data Radiology results: report reviewed CHEST 1 VIEW 01/29/2021 10:52 PM INDICATION / CLINICAL INFORMATION: dyspnea wheezing cough hx of smoking. COMPARISON: 10/10/2020. FINDINGS: SUPPORT DEVICES: None. HEART / MEDIASTINUM: No significant abnormality. LUNGS / PLEURA: Persistent upper lobe parenchymal scarring with associated volume loss right greater than left remains without significant change. No new infiltrate or pleural fluid. ADDITIONAL FINDINGS: No significant additional findings. IMPRESSION: Stable chest. - Medical Decision Making Acute on chronic bronchitis considering that this is patient's third ED encounter for same symptoms over the course of 4 months, COPD is a likely diagnosis although he has not been formally diagnosed with pulmonary function test. Patient received treatment in the emergency department which include IV magnesium, p.o. antibiotic, IV steroid and continuous bronchodilator treatment. Strongly encourage smoking cessation. Strongly encouraged follow-up with outpatient medicine physician. I use language line Romansh change lead better. per phone to provide discharge instructions. Also provided smoking counseling. Patient agreed to stop smoking. He understands that his breathing will worsen if he continues to smoke cigarettes. Critical care attestation.: If time is entered above; I have spent that time in minutes in the direct care of this critically ill patient, excluding procedure time. ED Disposition Clinical Impression: Acute bronchitis, Chronic bronchitis, Tobacco dependence Disposition: DC-01 TO HOME OR SELFCARE Is pt being admited?: No Does the pt Need Aspirin: No Condition: Stable Instructions: Steps to Quit Smoking, [id number], Chronic Obstructive Pulmonary Disease, [id number], Acute Bronchitis (ED), Chronic Bronchitis (ED) Prescriptions: Doxycycline Hyclate [Doxycycline Hyclate TAB] 100 mg PO Q12HR 7 Days #14 tab Prednisone [predniSONE 10 mg (6-Day Pack, 21 Tabs)] 10 mg PO .TAPER #1 tab.ds.pk Albuterol Mdi (or & Nicu Only) [ProAir HFA Inhaler] 2 puff IH QID PRN #8.5 gram PRN Reason: Shortness Of Breath Referrals: ALEKSANDRA RUEDA MD [Staff Physician] - 3-5 Days
[2021-01-29 22:43] LABS: Basophils # (Auto) 0.1 K/mm3 (0.0-0.1); Basophils % (Auto) 1.3 % (0.0-1.8); Eosinophils # (Auto) 0.5 K/mm3 (0.0-0.4); Eosinophils % (Auto) 8.6 % (0.0-4.3); Hemoglobin 15.1 gm/dl (11.8-15.2); Lymphocytes # (Auto) 1.7 K/mm3 (1.2-5.4); Lymphocytes % (Auto) 27.5 % (13.4-35.0); Mean Corpuscular HGB Conc 34 % (32-34); Mean Corpuscular Volume 91 fl (84-94); Monocytes # (Auto) 0.6 K/mm3 (0.0-0.8); Monocytes % (Auto) 9.4 % (0.0-7.3); Platelet Count 199 K/mm3 (140-440); Red Blood Count 4.97 M/mm3 (3.65-5.03); Red Cell Distribution Width 13.7 % (13.2-15.2)
[2021-01-29 23:02] LABS: BUN/Creatinine Ratio 19; Blood Urea Nitrogen 15 mg/dL (9-20); Calcium 8.7 mg/dL (8.4-10.2); Hemolysis Index 38
--- NOTE | 2021-01-29 23:11 | XRay Report ---
CHEST 1 VIEW 01/29/2021 10:52 PM INDICATION / CLINICAL INFORMATION: dyspnea wheezing cough hx of smoking. COMPARISON: 10/10/2020. FINDINGS: SUPPORT DEVICES: None. HEART / MEDIASTINUM: No significant abnormality. LUNGS / PLEURA: Persistent upper lobe parenchymal scarring with associated volume loss right greater than left remains without significant change. No new infiltrate or pleural fluid. ADDITIONAL FINDINGS: No significant additional findings. IMPRESSION: Stable chest. Signer Name: Bradford Hernandez MD Signed: 01/29/2021 11:07 PM Workstation Name: [id number]
[2021-01-30] MEDS ORDERED: DOXYCYCLINE 100 MG CAP PO ONE (00:01)
[2021-01-30 01:18] VITALS: BP 107/61
== END 2021-01-30 01:20 | disposition home or self-care (01) ==
LOC: ED 22:02
DX: J20.9 Acute bronchitis, unspecified (principal); F17.200 Nicotine dependence, unspecified, uncomplicated; Z98.890 Other specified postprocedural states; Z79.1 Long term (current) use of non-steroidal anti-inflammatories (NSAID); Z79.899 Other long term (current) drug therapy
CPT/HCPCS: 36415; 71045; 80048; 85025; 94640; 96365; 96375; 99284; J2930; J3475; 94644

== ENCOUNTER 2021-03-26 23:47 | Emergency (ER) | payer MEDICARE ==
[2021-03-27 00:25] VITALS: BP 119/73
--- NOTE | 2021-03-27 03:15 | Emergency Department Report ---
ED Shortness of Breath HPI - General Chief Complaint: Dyspnea/Respdistress Stated Complaint: COPD/NI Source: patient Mode of arrival: Ambulatory Limitations: No Limitations - History of Present Illness Initial Comments: 65-year-old [place] male presents to the emergency room complaining of dizziness and difficulty breathing. Patient has been seen by us several times for the same complaint. Patient has a history of acute on chronic COPD exacerbation. Patient reports he ran out of his inhaler yesterday. Patient denies any fever chills no nausea no vomiting. Does admit to a cough and shortness of breath. Patient has not been seen by coil finisher. Patient has extensive history of tobacco abuse and reports had been tobacco free for the last month by quoc. Who is translating. MD Complaint: shortness of breath, cough Onset/Timin - Related Data Previous Rx's Medication Instructions Recorded Last Taken Type Sulfamethoxazole/Trimethoprim 1 each PO BID #20 tablet 03/26/15 Unknown Rx [Bactrim Ds] Fluticasone [Flonase] 1 spray NS QDAY #1 bottle 12/04/18 Unknown Rx Ibuprofen [Motrin] 600 mg PO Q8H PRN #30 tablet 12/04/18 Unknown Rx Oxymetazoline 0.05% [Afrin] 2 spray NS BID #1 bottle 12/04/18 Unknown Rx Loratadine 1 tab PO DAILY 14 Days #14 capsule 07/23/20 Unknown Rx Albuterol Sulfate [Proair 90 mcg IH Q4HR PRN #1 aer.pow.ba 10/01/20 Unknown Rx Respiclick] predniSONE [Deltasone] 20 mg PO QDAY #4 tab 10/01/20 Unknown Rx Albuterol Mdi (or & Nicu Only) 2 puff IH QID PRN #8.5 gram 01/29/21 Unknown Rx [ProAir HFA Inhaler] Doxycycline Hyclate [Doxycycline 100 mg PO Q12HR 7 Days #14 tab 01/29/21 Unknown Rx Hyclate TAB] Prednisone [predniSONE 10 mg 10 mg PO .TAPER #1 tab.ds.pk 01/29/21 Unknown Rx (6-Day Pack, 21 Tabs)] Albuterol Sulfate [Proair 90 mcg IH Q4HRT #1 aer.pow.ba 03/27/21 Unknown Rx Respiclick] Fluticasone/Salmeterol [Advair 1 puff IH BID #1 disk.w.dev 03/27/21 Unknown Rx Diskus 100-50 mcg] methylPREDNISolone [Medrol 4MG 4 mg PO ONCE #1 tab.ds.pk 03/27/21 Unknown Rx DOSEPAK (21 tabs)] Allergies Allergy/AdvReac Type Severity Reaction Status Date / Time No Known Allergies Allergy Verified 03/26/15 13:59 ED Review of Systems ROS: Stated complaint: COPD/NI Other details as noted in HPI ED Past Medical Hx - Past Medical History Previous Medical History?: Yes Hx Kidney Stones: Yes Additional medical history: nose bleed, Lung problem as a child - Surgical History Past Surgical History?: Yes Additional Surgical History: Kidney stones - Social History Smoking Status: Never Smoker Substance Use Type: None - Medications Home Medications: Home Medications Medication Instructions Recorded Confirmed Last Taken Type Sulfamethoxazole/Trimethoprim 1 each PO BID #20 tablet 03/26/15 Unknown Rx [Bactrim Ds] Fluticasone [Flonase] 1 spray NS QDAY #1 bottle 12/04/18 Unknown Rx Ibuprofen [Motrin] 600 mg PO Q8H PRN #30 tablet 12/04/18 Unknown Rx Oxymetazoline 0.05% [Afrin] 2 spray NS BID #1 bottle 12/04/18 Unknown Rx Loratadine 1 tab PO DAILY 14 Days #14 capsule 07/23/20 Unknown Rx Albuterol Sulfate [Proair 90 mcg IH Q4HR PRN #1 aer.pow.ba 10/01/20 Unknown Rx Respiclick] predniSONE [Deltasone] 20 mg PO QDAY #4 tab 10/01/20 Unknown Rx Albuterol Mdi (or & Nicu Only) 2 puff IH QID PRN #8.5 gram 01/29/21 Unknown Rx [ProAir HFA Inhaler] Doxycycline Hyclate [Doxycycline 100 mg PO Q12HR 7 Days #14 tab 01/29/21 Unknown Rx Hyclate TAB] Prednisone [predniSONE 10 mg 10 mg PO .TAPER #1 tab.ds.pk 01/29/21 Unknown Rx (6-Day Pack, 21 Tabs)] Albuterol Sulfate [Proair 90 mcg IH Q4HRT #1 aer.pow.ba 03/27/21 Unknown Rx Respiclick] Fluticasone/Salmeterol [Advair 1 puff IH BID #1 disk.w.dev 03/27/21 Unknown Rx Diskus 100-50 mcg] methylPREDNISolone [Medrol 4MG 4 mg PO ONCE #1 tab.ds.pk 03/27/21 Unknown Rx DOSEPAK (21 tabs)] ED Physical Exam - General Limitations: No Limitations General appearance: alert, in no apparent distress - Head Head exam: Present: atraumatic, normocephalic - Eye Eye exam: Present: normal appearance - ENT ENT exam: Present: mucous membranes moist - Neck Neck exam: Present: normal inspection - Respiratory Respiratory exam: Present: wheezes (rml) - Cardiovascular Cardiovascular Exam: Present: regular rate - GI/Abdominal GI/Abdominal exam: Present: soft, normal bowel sounds - Extremities Exam Extremities exam: Present: normal inspection - Back Exam Back exam: Present: normal inspection - Neurological Exam Neurological exam: Present: alert, oriented X3, normal gait - Psychiatric Psychiatric exam: Present: normal affect, normal mood - Skin Skin exam: Present: warm, dry, intact, normal color. Absent: rash ED Course Vital Signs 03/27/21 03/27/21 00:22 04:18 Temperature 98 F Pulse Rate 84 Pulse Rate [ 70 Bilateral Throughout] Respiratory 16 Rate Respiratory 18 Rate [Bilateral Throughout] Blood Pressure 119/73 O2 Sat by Pulse 94 Oximetry ED Medical Decision Making - Medical Decision Making 65-year-old [place] male presents to the emergency room complaining of dizziness and difficulty breathing. Patient has been seen by us several times for the same complaint. Patient has a history of acute on chronic COPD exacerbation. Patient reports he ran out of his inhaler yesterday. Patient denies any fever chills no nausea no vomiting. Does admit to a cough and shortness of breath. Patient has not been seen by coil finisher. Patient has extensive history of tobacco abuse and reports had been tobacco free for the last month by quoc. Who is translating. Albuterol inhaler, Deltsone 20 mg p.o. Critical care attestation.: If time is entered above; I have spent that time in minutes in the direct care of this critically ill patient, excluding procedure time. ED Disposition Clinical Impression: COPD (chronic obstructive pulmonary disease) Disposition: TO HOME OR SELFCARE Is pt being admited?: No Does the pt Need Aspirin: No Condition: Stable Instructions: Chronic Obstructive Pulmonary Disease (ED), Chronic Obstructive Pulmonary Disease Exacerbation, [id number] Additional Instructions: Take medication as prescribed. Very important for you to follow-up with the coil finisher which is a specialist for lungs and a primary care provider. Dng arnaldo?c naomy luz ??nh. R?t claudine tr?ng ?? b?n naomy di bc s? ph?i, m?t c huyn olga v? ph?i v l nh cung c?p d?ch v? ch?m sc chnh. Prescriptions: Fluticasone/Salmeterol [Advair Diskus 100-50 mcg] 1 puff IH BID #1 disk.w.dev methylPREDNISolone [Medrol 4MG DOSEPAK (21 tabs)] 4 mg PO ONCE #1 tab.ds.pk Albuterol Sulfate [Proair Respiclick] 90 mcg IH Q4HRT #1 aer.pow.ba Referrals: PRIMARY CAREMD [Primary Care Provider] - 3-5 Days BRENDA KHAN MD [Staff Physician] - 3-5 Days ALEKSANDRA RUEDA MD [Staff Physician] - 3-5 Days Forms: Accompanied Note
[2021-03-27] MEDS ORDERED: ALBUTEROL 2.5 MG/3 ML NEBU IH ONE (03:19)
[2021-03-27] MEDS ORDERED: predniSONE 20 MG TAB PO NR (04:00)
--- NOTE | 2021-03-27 04:10 | XRay Report ---
CHEST 2 VIEW INDICATION / CLINICAL INFORMATION: sob,cough and rales. COMPARISON: Chest radiograph 01/29/2021 FINDINGS: SUPPORT DEVICES: None. HEART / MEDIASTINUM: No significant abnormality. LUNGS / PLEURA: Unchanged emphysema and right upper lobe scarring. No focal pulmonary consolidation. No pleural effusion. No pneumothorax. ADDITIONAL FINDINGS: No significant additional findings. IMPRESSION: 1. Unchanged emphysema with right upper lobe scarring. No acute abnormality identified. Signer Name: Zita Mohamud MD Signed: 03/27/2021 4:06 AM Workstation Name: [id number]
== END 2021-03-27 04:50 | disposition home or self-care (01) ==
LOC: ED 23:47
DX: J44.9 Chronic obstructive pulmonary disease, unspecified (principal); Z98.890 Other specified postprocedural states; Z79.1 Long term (current) use of non-steroidal anti-inflammatories (NSAID); Z79.899 Other long term (current) drug therapy
CPT/HCPCS: 71046; 94640; 99283; J7512; 94644